=== PATIENT | male | born 1985 | race American Indian/Alaskan Native ===

== ENCOUNTER 2020-11-30 06:47 | Emergency (ER) | payer OTHER ==
--- NOTE | 2020-11-30 07:45 | Event Note ---
ED Screening Note ED Screening Note: r flank pain This initial assessment/diagnostic orders/clinical plan/treatment(s) is/are subject to change based on patients health status, clinical progression and re- assessment by fellow clinical providers in the ED. Further treatment and workup at subsequent clinical providers discretion. Patient/guardian urged not to elope from the ED as their condition may be serious if not clinically assessed and managed. Initial orders include: ro k stone/uti ua labs
[2020-11-30 08:29] LABS: Hematocrit 43.6 % (35.5-45.6); Hemoglobin 14.6 gm/dl (11.8-15.2); Mean Corpuscular HGB Conc 33 % (32-34); Mean Corpuscular Volume 95 fl (84-94); Platelet Count 216 K/mm3 (140-440); Red Cell Distribution Width 14.1 % (13.2-15.2)
[2020-11-30 08:33] LABS: Bilirubin,Urine NEG (Negative); Blood,Urine SM (Negative); Color,Urine Yellow (Yellow); Mucus,Urine 3+ /HPF
[2020-11-30] MEDS ORDERED: SODIUM CHLORIDE 0.9% 1000 ML 1,000 ML IV ONE (08:38)
[2020-11-30] MEDS ORDERED: ONDANSETRON 4 MG/2 ML INJ IV ONE (08:38)
[2020-11-30] MEDS ORDERED: KETOROLAC 30 MG/1 ML INJ IV ONE (08:38)
[2020-11-30 08:51] LABS: BUN/Creatinine Ratio 12; Blood Urea Nitrogen 13 mg/dL (9-20); Calcium 9.5 mg/dL (8.4-10.2); Hemolysis Index 7
--- NOTE | 2020-11-30 09:45 | Emergency Department Report ---
ED Abdominal Pain HPI - General Chief Complaint: Abdominal Pain Stated Complaint: ABD PAINS PUI?: No Time Seen by Provider: 11/30/20 07:40 Source: patient Mode of arrival: Ambulatory Limitations: No Limitations - History of Present Illness Initial Comments: 35 yo comes to ER co right flank pain. Acute onset this AM. Radiates to his penis. No discharge NO concern for STI No fever or chills. No n/v/d Ambulatory to ER in NAD Complaint: abdominal pain -: Sudden, hour(s) Location: R flank Radiation: other Migration to: no migration Severity scale (0 -10): 1 Improves With: nothing Worsens With: nothing Associated Symptoms: denies other symptoms. denies: nausea, vomiting, diarrhea, fever, chills, constipation, dysuria, hematochezia, melena, hematuria, anorexia, syncope - Related Data Previous Rx's Medication Instructions Recorded Last Taken Type Tamsulosin [Flomax] 0.4 mg PO QDAY #10 cap 11/30/20 Unknown Rx traMADoL [Ultram] 50 mg PO Q6HR PRN #10 tablet 11/30/20 Unknown Rx Allergies Allergy/AdvReac Type Severity Reaction Status Date / Time No Known Allergies Allergy Verified 11/30/20 07:26 ED Review of Systems ROS: Stated complaint: ABD PAINS Other details as noted in HPI Comment: All other systems reviewed and negative ED Past Medical Hx - Past Medical History Previous Medical History?: No - Surgical History Past Surgical History?: No - Family History Family history: no significant - Social History Smoking Status: Current Every Day Smoker Substance Use Type: Alcohol, Marijuana - Medications Home Medications: Home Medications Medication Instructions Recorded Confirmed Last Taken Type Tamsulosin [Flomax] 0.4 mg PO QDAY #10 cap 11/30/20 Unknown Rx traMADoL [Ultram] 50 mg PO Q6HR PRN #10 tablet 11/30/20 Unknown Rx ED Physical Exam - General Limitations: No Limitations General appearance: alert, in no apparent distress - Head Head exam: Present: atraumatic, normocephalic - Eye Eye exam: Present: normal appearance - ENT ENT exam: Present: mucous membranes moist - Neck Neck exam: Present: normal inspection - Respiratory Respiratory exam: Present: normal lung sounds bilaterally. Absent: respiratory distress - Cardiovascular Cardiovascular Exam: Present: regular rate, normal rhythm. Absent: systolic murmur, diastolic murmur, rubs, gallop - GI/Abdominal GI/Abdominal exam: Present: soft, normal bowel sounds - Rectal Rectal exam: Present: deferred - Extremities Exam Extremities exam: Present: normal inspection - Back Exam Back exam: Present: normal inspection - Neurological Exam Neurological exam: Present: alert, oriented X3 - Psychiatric Psychiatric exam: Present: normal affect, normal mood - Skin Skin exam: Present: warm, dry, intact, normal color. Absent: rash ED Course Vital Signs 11/30/20 11/30/20 07:24 10:20 Temperature 97.7 F Pulse Rate 63 63 Respiratory 18 17 Rate Blood Pressure 146/89 127/76 [Right] O2 Sat by Pulse 100 100 Oximetry ED Medical Decision Making - Lab Data Result diagrams: 11/30/20 07:55 11/30/20 07:55 - Radiology Data Radiology results: report reviewed, image reviewed report reviewed - Medical Decision Making Labs 11/30/20 11/30/20 11/30/20 07:55 07:55 Unknown WBC 6.9 RBC 4.60 Hgb 14.6 Hct 43.6 MCV 95 H MCH 32 MCHC 33 RDW 14.1 Plt Count 216 Sodium 142 Potassium 4.3 Chloride 107.1 H Carbon Dioxide 26 Anion Gap 13 BUN 13 Creatinine 1.1 Estimated GFR > 60 BUN/Creatinine Ratio 12 Glucose 134 H Calcium 9.5 Urine Color Yellow Urine Turbidity Clear Urine pH 5.0 Ur Specific [place] 1.034 H Urine Protein 30 mg/dl Urine Glucose (UA) Neg Urine Ketones Tr Urine Blood Sm Urine Nitrite Neg Urine Bilirubin Neg Urine Urobilinogen 2.0 Ur Leukocyte Esterase Neg Urine WBC (Auto) 1.0 Urine RBC (Auto) 13.0 Urine Mucus 3+ Vital Signs (72 hours) 11/30/20 07:24 Temperature 97.7 F Pulse Rate 63 Respiratory 18 Rate Blood Pressure 146/89 [Right] O2 Sat by Pulse 100 Oximetry labs noted ua noted CT noted medicated with NS/zofran and toradol IV I suspect pt passed a kidney stone this AM when pain was at its peak. On dc exam pt ambulatory, taking po and nad. Reports feeling much better with no pain on dc. Dc home with dc plan of care including follow up, meds, diet and activity. Pt verbalizes understanding of plan of care. - Differential Diagnosis ro kstone/uti/pylo Critical care attestation.: If time is entered above; I have spent that time in minutes in the direct care of this critically ill patient, excluding procedure time. ED Disposition Clinical Impression: Flank pain, Hematuria Disposition: 01 HOME / SELF CARE / HOMELESS Is pt being admited?: No Does the pt Need Aspirin: No Condition: Stable Instructions: Flank Pain, Adult, [id number] Additional Instructions: stay well hydrated with water meds as ordered today motrin or tylenol over the counter may also be used follow up with pcp and urology sofía referrals below Prescriptions: Tamsulosin [Flomax] 0.4 mg PO QDAY #10 cap traMADoL [Ultram] 50 mg PO Q6HR PRN #10 tablet PRN Reason: Pain Referrals: PRIMARY CAREMD [Primary Care Provider] - 3-5 Days HOWIE MONTERROSO MD [Staff Physician] - 3-5 Days SHANA MONTES MD [Staff Physician] - 3-5 Days Forms: Work/School Release Form(ED) Time of Disposition: 09:57
--- NOTE | 2020-11-30 09:53 | Cat Scan Report ---
CT ABDOMEN AND PELVIS WITHOUT CONTRAST INDICATION / CLINICAL INFORMATION: LEFT FLANK PAIN. TECHNIQUE: Axial CT images were obtained through the abdomen and pelvis without IV contrast. All CT scans at this location are performed using CT dose reduction for ALARA by means of automated exposure control. COMPARISON: None available. FINDINGS: LOWER CHEST: No significant abnormality. LIVER: No significant abnormality. GALLBLADDER: No significant abnormality. BILE DUCTS: No significant abnormality. PANCREAS: No significant abnormality. SPLEEN: No significant abnormality. ADRENALS: No significant abnormality. RIGHT KIDNEY / URETER: No significant abnormality. LEFT KIDNEY / URETER: No significant abnormality. STOMACH / SMALL BOWEL: No significant abnormality. COLON: No significant abnormality. APPENDIX: No significant abnormality. PERITONEUM: No free fluid. No free air. No fluid collection. LYMPH NODES: No significant adenopathy. VASCULAR STRUCTURES: No significant abnormality. URINARY BLADDER: No significant abnormality. REPRODUCTIVE ORGANS: No significant abnormality. ADDITIONAL FINDINGS: None. SKELETAL SYSTEM: No significant abnormality. IMPRESSION: Negative for obstruction or localized inflammation. Signer Name: Adin Pate MD Signed: 11/30/2020 9:49 AM Workstation Name: [id number]
[2020-11-30 10:22] VITALS: BP 127/76
== END 2020-11-30 10:20 | disposition home or self-care (01) ==
LOC: ED 06:47
DX: R10.9 Unspecified abdominal pain (principal); F17.200 Nicotine dependence, unspecified, uncomplicated; F12.90 Cannabis use, unspecified, uncomplicated; Z72.89 Other problems related to lifestyle; Z79.899 Other long term (current) drug therapy
CPT/HCPCS: 36415; 74176; 80048; 81001; 85027; 96361; 96374; 96375; 99284; J1885; J2405; J7030